=== PATIENT | female | born 1960 | race Caucasian/White ===

== ENCOUNTER 2016-12-14 12:39 | Observation (INO) | payer OTHER ==
[2016-12-14] VITALS (10 sets, daily range): BP systolic 121–139; BP diastolic 72–86
[~2016-12-14] VITALS: Ht 162.6 cm; Wt 79.4 kg
[~2016-12-14 12:39] MED LIST: Dexamethasone 20mg/5ml IVP ONE; ceFAZolin sod 1 GM in NS 55 ML IVPB ONE
[2016-12-14] MEDS ORDERED: Thrombin 5000 units TOPIC ONE (13:39)
[2016-12-14] MEDS ORDERED: Surgicel 4in x 8in TOPIC ONE (13:39)
[2016-12-14] MEDS ORDERED: Ropivacaine 5mg/ml Vial 20ml INJ ONE (13:40)
[2016-12-14] MEDS ORDERED: Bacitracin 50000 Units Vial ONE (13:40)
[2016-12-14] MEDS ORDERED: Lidocaine 1% Plain 30 ml INJ ONE (13:40)
[2016-12-14] MEDS ORDERED: Vancomycin 1gm inj IVPB ONE (13:40)
[2016-12-14] MEDS: LR 1000ml 1,000 ML IVLG SCH ×2 (13:53→18:13)
[2016-12-14] MEDS ORDERED: fentaNYL 100 mcg/2 mL IV PRN (14:00)
[2016-12-14] MEDS ORDERED: Norco 7.5mg/325mg tab ORAL PRN (14:00)
[2016-12-14] MEDS ORDERED: Ketorolac 30mg Inj IV PRN (14:00)
[2016-12-14] MEDS ORDERED: Meperidine 25mg/ml Inj IV PRN (14:00)
[2016-12-14] MEDS ORDERED: Oxycodone/Acetaminophen 5-325 ORAL PRN (14:00)
[2016-12-14] MEDS ORDERED: DiphenhydrAMINE 50mg/ml Inj IVP PRN (14:00)
[2016-12-14] MEDS ORDERED: Norco 5mg/325mg tab ORAL PRN (14:00)
[2016-12-14] MEDS ORDERED: Atropine Inj 1mg/10ml Syr IV PRN (14:00)
[2016-12-14] MEDS ORDERED: Metoclopramide 10mg/2ml Inj IVP PRN (14:00)
[2016-12-14] MEDS ORDERED: Acetaminophen (Non formulary) 100 ML IV ONE (14:00)
[2016-12-14] MEDS ORDERED: Midazolam 2mg/2ml Inj IVP PRN (14:00)
[2016-12-14] MEDS ORDERED: LORazepam Inj 2mg/ml 1ml IV PRN (14:00)
[2016-12-14] MEDS ORDERED: Labetalol 5mg/ml 20ml vial IV PRN (14:00)
[2016-12-14] MEDS ORDERED: Ketorolac 60mg Inj IV PRN (14:00)
--- NOTE | 2016-12-14 14:00 | Anethesia Preoperative Eval ---
Anesthesia Pre-op PMH/ROS General Date of Evaluation: Dec 14, 2016 Time of Evaluation: 14:26 Anesthesiologist: Fly ASA Score: ASA 2 Mallampati Score Class I : Soft palate, uvula, fauces, pillars visible Class II: Soft palate, uvula, fauces visible Class III: Soft palate, base of uvula visible Class IV: Only hard plate visible Mallampati Classification: Class II Surgeon: Cinthia Diagnosis: Neck Pain Surgical Procedure: ACDF C4-5,C5-6 Anesthesia History: none Family History: no anesthesia problems Allergies: Coded Allergies: No Known Allergies (Unverified , 12/12/16) Medications: see eMAR Past Medical History Cardiovascular: Reports: HTN Gastrointestinal/Genitourinary: Reports: GERD PSxH Narrative: TL, Ectopic SX Anesthesia Pre-op Phys. Exam Physician Exam Last Vital Signs Date Time Temp Pulse Resp B/P Pulse Ox O2 Delivery O2 Flow Rate FiO2 12/14/16 13:07 97.9 86 18 132/83 96 Room Air Constitutional: NAD Neurologic: CN 2-12 intact Cardiovascular: RRR Respiratory: CTA Gastrointestinal: S/NT/ND Airway Exam Mallampati Score: Class II MO: limited ROM: limited Teeth: intact Anesthesia Pre-op A/P Risk Assessment & Plan Assessment: ASA 2 Plan: GA, BIS,Glidescope Status Change Before Surgery: No Pre-Antibiotics Dru Grams Ancef IV Given Within 1 Hr of Incision: Yes Time Given: 14:46 Bahman Bill MD Dec 14, 2016 14:00
--- NOTE | 2016-12-14 14:06 | Pre-Procedure Note/Attestation ---
Pre-Procedure Note/Attestation Complete Prior to Procedure Planned Procedure: not applicable Procedure Narrative: C4-5 C5-6 ACDF Indications for Procedure Pre-Operative Diagnosis: postraumat pain Attestation I attest that I discussed the nature of the procedure; its benefits; risks and complications; and alternatives (and the risks and benefits of such alternatives ), prior to the procedure, with the patient (or the patient's legal sales promotion representative). I attest that, if there was a reasonable possibility of needing a blood transfusion, the patient (or the patient's legal sales promotion representative) was given the [facility] standardized written summary, pursuant to the Javier Rickey Blood Safety Act ([place] Health and Safety Code # 1645, as amended). I attest that I re-evaluated the patient just prior to the surgery and that there has been no change in the patient's H&P, except as documented below: LAZARA HDZ Dec 14, 2016 14:06
[2016-12-14] MEDS ORDERED: MULTIVITAMINS1 EAC2 ORAL (14:09)
[2016-12-14] MEDS ORDERED: VITAMIN B122500 MCG PO (14:09)
[2016-12-14] MEDS ORDERED: VITAMIN E1000 UNI1 PO (14:09)
[2016-12-14] MEDS ORDERED: VITAMIN D2000 UNI2 PO (14:09)
[2016-12-14] MEDS ORDERED: AMINO ACID1 EACH PO (14:09)
--- NOTE | 2016-12-14 14:23 | Immediate Post-Op Evaluation ---
Immediate Post-Op Evalulation Immediate Post-Op Evalulation Procedure: ACDF C4-5, C5-6 Date of Evaluation: Dec 14, 2016 Time of Evaluation: 17:54 IV Fluids: 1200 LR Blood Products: 0 Estimated Blood Loss: 25 Urinary Output: 0 Blood Pressure Systolic: 122 Blood Pressure Diastolic: 72 Pulse Rate: 77 Respiratory Rate: 16 O2 Sat by Pulse Oximetry: 99 Temperature (Fahrenheit): 97.3 Pain Score (1-10): 3 Nausea: No Vomiting: No Complications 0 Patient Status: awake, reacts, patent, extubated, none Hydration Status: adequate Dru Grams Ancef IV Given Within 1 Hr of Incision: Yes Time Given: 14:46 Bahman Bill MD Dec 14, 2016 14:23
--- NOTE | 2016-12-14 14:24 | 48 Hour Post Anesthesia Eval ---
Post Anesthesia Evaluation Procedure: ACDF C4-5, C5-6 Date of Evaluation: Dec 14, 2016 Time of Evaluation: 19:58 Blood Pressure Systolic: 131 0: 74 Pulse Rate: 76 Respiratory Rate: 18 Temperature (Fahrenheit): 97.6 O2 Sat by Pulse Oximetry: 99 Airway: patent Nausea: No Vomiting: No Pain Intensity: 2 Hydration Status: adequate Cardiopulmonary Status: Stable Mental Status/LOC: patient returned to baseline Follow-up Care/Observations: 0 Post-Anesthesia Complications: 0 Follow-up care needed: ready to discharge Bahman Bill MD Dec 14, 2016 14:24
[2016-12-14] MEDS ORDERED: Transderm Scop 1.5mg TDERMAL PRN (14:45)
[2016-12-14] MEDS ORDERED: Transderm Scop 1.5mg TDERMAL ONE (14:45)
[2016-12-14] MEDS ORDERED: oxyCODONE 5mg IR tab ORAL PRN (14:45)
[2016-12-14] MEDS ORDERED: Milk of Magnesia 30ml Ud ORAL PRN ×2 (14:45)
[2016-12-14] MEDS ORDERED: Hydromorphone 0.5mg/0.5ml inj SUBQ PRN (14:45)
--- NOTE | 2016-12-14 17:38 | Brief Operative Note ---
Immediate Post Operative Note Operative Note Pre-op Diagnosis: postraumat pain Procedure: Pain weakness Post-op Diagnosis: same as pre-op Findings: consistent w/pre-op dx studies Surgeon: Cinthia Museum Specialist: Tj Anesthesiologist: Fly Anesthesia: general Specimen: none Complications: none Condition: stable Estimated Blood Loss: minimal Drains: none Implant(s) used?: Yes LAZARA HDZ Dec 14, 2016 17:38
[2016-12-14] MEDS: Hydromorphone 0.5mg/0.5ml inj IVP PRN ×2 (18:08→18:29)
[2016-12-14] MEDS ORDERED: Tubing IV Secondary IV ONE (20:29)
[2016-12-14] MEDS: D5 1/2NS 1,000 ML IV SCH (21:06)
[2016-12-14] MEDS: ceFAZolin sod 1 GM in D5W 55 ML IV SCH (21:14)
--- NOTE | 2016-12-15 01:17 | Consultation ---
DATE OF CONSULTATION: 12/14/2016 CONSULTING PHYSICIAN: Amor Gilmore M.D. REFERRING PHYSICIAN: Michael Vicente M.D. REASON FOR CONSULTATION: Acute pain consult. Thank you kindly for consulting me to evaluate and render an opinion as to how to proceed in the management of the patient's acute postoperative cervical spine pain after cervical spine fusion surgery with instrumentation. The patient is an obese 55-year-old woman who injured her neck after a slip and fall accident. Today, she required cervical spine fusion surgery with instrumentation and complained of significant discomfort postoperatively, you called me for acute pain consultation. I saw the patient at bedside with her fiance and the nurse. I performed detailed history and physical examination. I reviewed the medical record in detail and devised the following postoperative pain management plan. PAST MEDICAL HISTORY: 1. Acute postoperative cervical spine pain, status post cervical spine fusion surgery with instrumentation by Dr. Michael Vicente in December 2016. 2. Slip and fall accident. 3. Obesity. ALLERGIES: No known drug allergies. MEDICATIONS: At home, PRN oxycodone and vitamins. REVIEW OF SYSTEMS: Per Dr. Salas. FAMILY HISTORY: Noncontributory. SOCIAL HISTORY: The patient accompanied at the bedside by her fiance. She drinks alcohol socially. She denies tobacco or marijuana usage. PAST SURGICAL HISTORY: Laparoscopic surgeries including tubal ligation. PHYSICAL EXAMINATION: VITAL SIGNS: Age 55, height 5 feet 4 inches, weight 176 pounds. Vital signs in the medical record. HEENT: Normocephalic and atraumatic. Thick neck. No Shah's palsy. No Lillie syndrome. No nuchal rigidity. Pain with range of motion. NEUROLOGIC: Detailed neurologic exam and neck exam per Dr. Michael Vicente. CHEST: Barrel chested with minimal bibasilar crackles, likely secondary to obesity. HEART: Regular rate and rhythm. ABDOMEN: Obese, positive bowel sounds. BREASTS AND GENITOURINARY: Deferred. DIAGNOSTIC TESTING: MRI of cervical spine dated 10/20/2016, shows 2 mm to 4 mm posterior disk bulges C4-5 C5-C6 and C6-7 with mild to moderate central canal and foraminal stenosis. A 12-lead EKG, normal sinus rhythm, ventricular rate 67, 12/05/2016 no evidence of acute cardiac ischemia. Preoperative chest x-ray shows normal chest x-ray on 12/05/2016 LABORATORY STUDIES: On 12/05/2016, shows glucose 92, BUN 13, creatinine 0.7. Sodium 140, potassium 4.2, chloride 104, bicarbonate 26, calcium 9.9, troponin 7.7, albumin 4.6, AST 20, ALT 29, total bilirubin 0.4, alkaline phosphatase 102, and PTT 34. INR 1. White count 5, hematocrit 42, and platelets 400,000. Urinalysis negative. negative. Hepatitis B and C, nonreactive. Human immunodeficiency virus negative. IMPRESSION: 1. Acute postoperative cervical spine pain, status post cervical spine fusion surgery with instrumentation by Dr. Michael Vicente in December 2016. 2. Slip and fall accident. 3. Obesity. TREATMENT AND RECOMMENDATIONS: To cover this patient's pain control postoperatively, I have devised the following analgesic plan. The patient does have a propensity for nausea postoperatively and I have ordered a tiered regimen of antiemetics as a first-line agent. I have ordered Zofran 4 mg intravenously every 4 hours. As a second-line agent I have ordered Phenergan 12.5 mg intramuscular every eight hours p.r.n. In case of refractory nausea, I will make available scopolamine patch 1.5 mg q. 72 h. The patient denies glaucoma symptoms, would otherwise prohibit the use of scopolamine. The patient has had parental narcotics in the past, but cannot recall the name. After discussion together we decided to use Dilaudid as her parental narcotics. I would chose the subcutaneous route as there should be less mitogenic adverse side effects. I will start with the 0.5 mg dose every three hours p.r.n. The patient does have oxycodone at home, which she has used with good effect, except for opioid-induced constipation. I will start her on Colace and Senokot b.i.d. and make available multiple laxatives to help reduce this constipation side effects. Due to the patient's obesity, I have recommended incentive spirometry. Ordered to encourage good pulmonary toilet. I will defer DVT prophylaxis to the surgical team. I have ordered Cepacol lozenges for sore throat complaints after her neck surgery. A comprehensive review of the medical record was performed. Record reviewed include multiple reports from today's surgery at [facility] including multiple records from the surgery suite from the intraoperative anesthesiologist, Dr. Bill, who I spoke with. Also, multiple records were reviewed from pharmacy team, the nursing staff, and the surgeon, Dr. Vicente. Multiple preoperative diagnostic testing and history and physical were reviewed from Dr. Salas. Amor Gilmore M.D. DR: MANDI JOB#: [id number] CC:
--- NOTE | 2016-12-15 02:08 | Operative Note - Dictated ---
DATE OF OPERATION: 12/14/2016 SURGEON: Michael Vicente, Ph.D., M.D. BEND SORTER: Ty Spencer M.D. ANESTHESIOLOGIST: Bahman Bill M.D. ANESTHESIA: General intubation. ESTIMATED BLOOD LOSS: Minimal. COMPLICATIONS: None. POSTOPERATIVE CONDITION: Good/stable. 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 POSTOPERATIVE DIAGNOSIS: Posttraumatic cervical herniated nucleus pulposus with radiculopathy/neurologic deficit. PROCEDURES PERFORMED: 1. Chidi-vertebrectomy, C4, C5, and C6. 2. Correction deformity, C4-C5, C5-C6. 3. Interbody reconstruction, C4-C5, C5-C6 with synthetic graft. 4. Fusion, C4-C5, C5-C6. 5. Placement of osteopromotive substance, C4-C5, C5-C6. 6. Anterior internal plate fixation, C4-C5-C6. 7. Intraoperative fluoroscopy, interpreted by surgeon. 8. High-powered microscopic dissection. 9. SSEP monitoring. DESCRIPTION OF PROCEDURE: The patient was brought to the operating room and in supine position, general anesthesia with intubation was induced. IV antibiotics, IV Decadron administered 30 minutes prior to incision time. The patient was in appropriate position. Ten pounds of traction around the neck. Anterior cervical spine was sterilely prepped and draped in the usual sterile fashion. Transverse incision centered in a skin fold was sharply placed in left lateral to dermis and epidermis. Electrocautery dissection was carried through the subcutaneous tissue to the level of the cervicothoracic fascia. After this, the patient was brought to the operating room and in the supine position, general anesthesia with intubation was induced. IV antibiotics and IV Decadron were administered 30 minutes prior to incision time. After the anterior cervical spine was sterilely prepped and draped in the usual sterile fashion, left transverse incision was placed sharply through dermis and epidermis in the skin fold. Electrocautery dissection was carried through subcutaneous tissue to the level of the platysmas muscle was identified, isolated, and transected in line with the incision. Blunt dissection was carried through the deep cervical and pretracheal fascia to the midline between the right and left longus colli muscles. A spinal needle bent at 90 degree angle, so as to avoid penetration greater than 3 mm in disk space was placed into the disk space. A cross-table image was obtained, interpreted by surgeons, demonstrating the correct level for further dissection. Level was marked. Retractors were placed. C4-C5: Anterior osteophytes resected. Chidi-vertebrectomy, inferior C4 and superior C5 to posterior longitudinal ligament. Posterior longitudinal ligament was resected. Spinal cord decompressed. Foraminotomies were performed. No dural tears or leaks noted anytime during the procedure. SSEP monitoring stable. A 6 mm lordotic graft with appropriate dimensions containing osteopromotive material was tamped into position. Fit excellent. The patient is stable. Attention was turned to the C5-C6 interval. The anterior osteophyte was resected. Severe collapse was noted. Chidi-vertebrectomy, inferior C5, superior C6, and posterior longitudinal ligament was resected with decompression with spinal cord and excision of osteophytes. No dural tears or leaks noted anytime during the procedure. SSEP monitoring stable. Appropriate dimension 6 mm lordotic graft was tamped into position containing osteopromotive material. The patient is stable. All traction on the neck removed. The anterior internal plate fixation, C4-C5-C6, bilateral screws at each interval in a compressive fashion, placed with fluoroscopic guidance. The patient is stable. Wound irrigated with antibiotic-containing saline. Exploration revealed no excoriation or laceration of vital structures. FloSeal applied after copious irrigation with antibiotic-containing saline. A 1 g of vancomycin powder placed. Reapproximation of the platysmas muscle with Vicryl suture material. Dermis and epidermis via subcuticular suture followed surgical strips and sterile bandage. Bandage maintained in place with tape. The patient was awakened and extubated in the operating room, and transported to postop recovery in good stable condition. Michael Vicente M.D. DR: HEVER JOB#: [id number] CC: Ty Spencer M.D.
[2016-12-15 04:00] VITALS: BP 138/80
[2016-12-15] MEDS: ceFAZolin sod 1 GM in D5W 55 ML IV SCH ×2 (06:59→13:47)
[2016-12-15] MEDS: D5 1/2NS 1,000 ML IV SCH (07:03)
[2016-12-15] MEDS: Sodium Chloride 550 ML IV SCH ×7 (08:09→11:18)
[2016-12-15 08:11] VITALS: BP 137/97
[2016-12-15] MEDS ORDERED: Acetaminophen (Non formulary) 100 ML IV ONE (09:00)
[2016-12-15] MEDS ORDERED: Transderm Scop 1.5mg TDERMAL ONE (09:00)
--- NOTE | 2016-12-15 10:29 | Diagnostic Imaging Report ---
Indication: Neck pain Technique: Intraoperative imaging of the cervical spine with 3 fluoroscopically captured images. Comparison: None Findings: Limited intraoperative imaging demonstrates anterior cervical discectomy and fusion of C4-C6. Endotracheal tube is noted. Impression: Intraoperative imaging.
[2016-12-15 12:19] VITALS: BP 135/79
--- NOTE | 2016-12-15 12:38 | Progress Note ---
DATE: 12/15/2016 ACUTE PAIN MANAGEMENT PHYSICIAN PROGRESS NOTE MEDICATIONS: Medication administration record reviewed. Medications include Mylanta intravenous fluids, Cepacol, Catapres, Benadryl, Dilaudid, milk of magnesia, Zofran, Roxicodone, Protonix, Senokot, and scopolamine patch. LABORATORY STUDIES: No interval laboratory studies. OBJECTIVE: VITAL SIGNS: Afebrile, pulse 83, respirations 21, blood pressure 138/80, and oxygen saturation 93% on room air. I spent over 60 minutes in consultation today. I discussed the case with the night nurse, MARLY Almazan, and with day nurse, MARLY Esposito. At the bedside, the patient's boyfriend is helping the patient who is sitting upright in bed and vomiting. The patient has had persistent nausea throughout the night. Multiple trials of Zofran were ineffective. I will increase her IV fluids to 250 mL an hour continuous after 500 mL bolus over 30 minutes for intravascular rehydration. The patient has been out of bed to the restroom to urinate. Because of the patient's fear of persistent nausea, she has been not accepting any pain medication so far. I think this is a mistake and I encouraged her to use the subcutaneous Dilaudid for analgesia as well as trialed Cepacol lozenges. The Cepacol lozenge packet placed in the bedside, but the nurse was not able to convince the patient to trial them. Certainly a lot of postoperative analgesia is exacerbating her nausea symptoms as well. She does not appear to be overly anxious.; however, consideration for Ativan might be warranted to aid with sedation. The patient denies any glaucoma symptoms. I have asked the nurse to apply the scopolamine patch, which was not applied earlier, even though ordered p.r.n. I also have asked the nurse to administer an intramuscular dose of Phenergan 12.5 mg now x1. If the patient remains in the hospital, I will continue the Phenergan q.8 h. p.r.n. for refractory nausea. In addition to the Cepacol lozenges for sore throat complaints, I would recommend a continuous usage of subcutaneous Dilaudid. The subcutaneous route should lower the nausea effects compared to intravenous route narcotics. If parenteral acetaminophen is available, I will ask the pharmacy to give a dose x1 for analgesia as well. The patient is swallowing, breathing, and phonating within normal limits after her neck surgery. The patient appears neurologically stable grossly. Amor Gilmore M.D. DR: BING JOB#: [id number] CC:
[2016-12-15 16:00] VITALS: BP 121/67
[2016-12-15] MEDS ORDERED: Propofol 10mg/ml 20ml IV ONE (19:14)
[2016-12-15] MEDS ORDERED: LR 1000ml ONE ×2 (19:14)
[2016-12-15] MEDS ORDERED: Neostigmine 1mg/ml 10ml Inj ONE (19:14)
[2016-12-15] MEDS ORDERED: Sterile Water Irrig 1000ml IRRIG ONE (19:14)
[2016-12-15] MEDS ORDERED: Midazolam 2mg/2ml Inj ONE (19:14)
[2016-12-15] MEDS ORDERED: Glycopyrrolate 0.2mg/ml 1ml Vial ONE (19:14)
[2016-12-15] MEDS ORDERED: Alfentanil 2ml Inj ONE (19:14)
[2016-12-15] MEDS ORDERED: Lidocaine 1% MPF 10mg/ml 5ml ONE (19:14)
[2016-12-15] MEDS ORDERED: NS Irrig 1000ml ONE (19:14)
[2016-12-15] MEDS ORDERED: Labetalol 5mg/ml 20ml vial IV ONE (19:14)
[2016-12-15] MEDS ORDERED: Zemuron 50mg/5ml Inj IV ONE (19:14)
[2016-12-15] MEDS ORDERED: Dexamethasone 4mg/ml vial ONE (19:14)
[2016-12-15] MEDS ORDERED: fentaNYL 250mcg/5ml ONE (19:14)
== END 2016-12-15 19:15 | disposition home or self-care (01) ==
LOC: SUR 12:39 → 3E 20:28
DX: M50.10 Cervical disc disorder with radiculopathy, unspecified cervical region (principal); G89.18 Other acute postprocedural pain; K21.9 Gastro-esophageal reflux disease without esophagitis; I10 Essential (primary) hypertension
CPT/HCPCS: 20930; 22551; 22552; 22853; 72040; 76001; 82962; 87081; 97161; C1713; G0378; G0379; J0690; J1100; J1170; J2250; J2405; J2550; J2704; J2710; J3010; J3370; J3490; J7070; J7120; 94003; 94150